=== PATIENT | male | born 1990 | race Two or more races ===

== ENCOUNTER 2018-12-02 08:54 | Emergency (ER) | payer MEDICAID ==
[~2018-12-02] VITALS: Ht 170.2 cm; Wt 84.8 kg
[2018-12-02 09:51] VITALS: BP 134/88
== END 2018-12-02 10:14 | disposition home or self-care (01) ==
LOC: ER 09:00
DX: M54.5 Low back pain (principal); G89.29 Other chronic pain; H60.93 Unspecified otitis externa, bilateral; F17.210 Nicotine dependence, cigarettes, uncomplicated

== ENCOUNTER 2022-03-26 13:39 | Emergency (ER) | payer MEDICAID, OTHER ==
[~2022-03-26] VITALS: Ht 175.3 cm; Wt 73.0 kg
[2022-03-26 14:19] VITALS: BP 142/82
[2022-03-26] MEDS ORDERED: FLUORESCEIN SOD OPTH TEST STRIP OP ONE (14:45)
[2022-03-26] MEDS ORDERED: TOBR0.3S OP (15:03)
== END 2022-03-26 15:09 | disposition home or self-care (01) ==
LOC: ER 13:39
DX: T15.02XA Foreign body in cornea, left eye, initial encounter (principal); F17.210 Nicotine dependence, cigarettes, uncomplicated; W22.8XXA Striking against or struck by other objects, initial encounter; Y93.89 Activity, other specified; Y92.89 Other specified places as the place of occurrence of the external cause; Y99.8 Other external cause status
CPT/HCPCS: 65222